=== PATIENT | male | born 1975 | race American Indian/Alaskan Native ===

== ENCOUNTER 2021-12-21 08:00 | Outpatient (CLI) | payer OTHER | END 2021-12-21 08:30 | disposition home or self-care (01) | LOC: PPH VACUNA 08:00 | PROVIDERS: ATTEND Emergency Medicine Pediatric Emergency Medicine | DX: Z23 Encounter for immunization (principal) ==

== ENCOUNTER 2022-07-30 07:30 | Emergency (ER) | payer OTHER ==
[~2022-07-30] VITALS: Ht 172.7 cm; Wt 97.1 kg
[2022-07-30] MEDS ORDERED: TENORMIN25 MG PO (07:54)
[2022-07-30] MEDS ORDERED: PEPCID AC20 MG PO (08:39)
== END 2022-07-30 09:24 | disposition home or self-care (01) ==
LOC: ER 07:30
DX: J32.9 Chronic sinusitis, unspecified (principal)

== ENCOUNTER 2022-12-12 07:22 | Outpatient (CLI) | payer OTHER ==
[~2022-12-12 07:22] MED LIST: PEPCID AC20 MG PO; TENORMIN25 MG PO
== END 2022-12-12 07:28 | disposition home or self-care (01) ==
LOC: LAB 07:22
PROVIDERS: ATTEND General Practice
DX: D64.9 Anemia, unspecified (principal); N39.0 Urinary tract infection, site not specified; I10 Essential (primary) hypertension; E78.5 Hyperlipidemia, unspecified; E11.9 Type 2 diabetes mellitus without complications; Z12.11 Encounter for screening for malignant neoplasm of colon; N40.0 Benign prostatic hyperplasia without lower urinary tract symptoms

== ENCOUNTER 2023-03-05 08:31 | Outpatient (CLI) | payer OTHER | END 2023-03-05 09:38 | disposition home or self-care (01) | LOC: LAB 08:31 | DX: U07.1 COVID-19 (principal) ==

== ENCOUNTER 2023-05-30 07:34 | Outpatient (CLI) | payer OTHER | END 2023-05-30 08:01 | disposition home or self-care (01) | LOC: LAB 07:34 | DX: U07.1 COVID-19 (principal) ==

== ENCOUNTER 2023-06-08 18:43 | Emergency (ER) | payer OTHER ==
[~2023-06-08] VITALS: Ht 167.6 cm; Wt 90.7 kg
== END 2023-06-08 22:23 | disposition home or self-care (01) ==
LOC: ER 18:43
DX: M54.89 Other dorsalgia (principal); Z88.8 Allergy status to other drugs, medicaments and biological substances

== ENCOUNTER 2023-06-28 11:57 | Outpatient (CLI) | payer OTHER | END 2023-06-28 12:07 | disposition home or self-care (01) | LOC: PPH VACUNA 11:57 | PROVIDERS: ATTEND Emergency Medicine Pediatric Emergency Medicine | DX: Z23 Encounter for immunization (principal) | CPT/HCPCS: 90686; G0008 ==

== ENCOUNTER 2023-07-02 09:57 | Emergency (ER) | payer OTHER ==
[~2023-07-02] VITALS: Ht 170.2 cm; Wt 86.2 kg
[2023-07-02] MEDS ORDERED: COZAAR25 MG PO (10:22)
== END 2023-07-02 13:22 | disposition home or self-care (01) ==
LOC: ER 09:57
DX: H93.19 Tinnitus, unspecified ear (principal); J45.909 Unspecified asthma, uncomplicated; Z87.898 Personal history of other specified conditions; Z86.79 Personal history of other diseases of the circulatory system

== ENCOUNTER → 2023-09-17 09:34 | Outpatient (CLI) | payer OTHER ==
[~2023-09-17 09:34] MED LIST changes: +COZAAR25 MG PO
[2023-09-17 10:14] LABS: HEMATOCRIT 39.8 % (39.0-48.0); HEMOGLOBIN 12.8 g/dL (13-16.00); MEAN CORPUSCULAR HEMOGLOBIN 28.6 pg (27.00-32.0); MEAN CORPUSCULAR HGB CONC 32.2 g/dl (32.0-36.0); PLATELET COUNT 168 K/uL (150-450); RED BLOOD COUNT 4.47 M/uL (4.00-6.00)
[2023-09-17 10:45] LABS: ALBUMIN 3.8 gm/dL (3.4-5.0); ALKALINE PHOSPHATASE 64 U/L (50-136); ALT/SGPT 47 U/L (12-78); ANION GAP 7 (10.0-20.0); AST/SGOT 45 U/L (15-37); BLOOD UREA NITROGEN 22 mg/dL (7-18); BUN CREA RATIO 18 (7.0-25.0); CALCIUM 8.9 mg/dL (8.5-10.1); CARBON DIOXIDE 33 mEq/L (21-32); CHLORIDE 104 mmol/L (98-107); CHOL HDL RATIO 4.4 (0-5.0); CHOLESTEROL 208 mg/dL (0-200); CREATININE SERUM 1.22 mg/dL (0.70-1.30); GFR 62.87; GLOBULINA 4.1 G/DL (2.4-3.5); GLUCOSE FASTING 103 mg/dL (65-100); HDL 47 mg/dl (40-60); LDL 124 mg/dl (0-130); OSMOLALITY SERUM 281 MOSM/KG (275-295); POTASSIUM 4.51 mEq/L (3.5-5.1); SODIUM 139 mmol/L (136-145); TOTAL PROTEIN 7.9 gm/dL (6.4-8.2); TRIGLYCERIDES 185 mg/dL (0-150); VLDL 37 (0-39)
[2023-09-17 10:59] LABS: C-REACTIVE PROTEIN < 0.29 MG/DL (0.00-0.29)
== END | disposition home or self-care (01) ==
LOC: LAB 09:34
PROVIDERS: ATTEND Internal Medicine
DX: D64.9 Anemia, unspecified (principal); R10.9 Unspecified abdominal pain; E03.9 Hypothyroidism, unspecified; E78.5 Hyperlipidemia, unspecified; R07.9 Chest pain, unspecified; E11.9 Type 2 diabetes mellitus without complications; I50.22 Chronic systolic (congestive) heart failure

== ENCOUNTER 2024-01-21 07:28 | Outpatient (CLI) | payer OTHER ==
[2024-01-21 08:08] LABS: HEMATOCRIT 40.6 % (39.0-48.0); HEMOGLOBIN 13.5 g/dL (13-16.00); MEAN CELL VOLUME 90.2 fL (80.0-100.00); MEAN CORPUSCULAR HGB CONC 33.2 g/dl (32.0-36.0); PLATELET COUNT 171 K/uL (150-450); RED CELL DISTRIBUTION WIDTH 12.8 % (11.5-14.5)
[2024-01-21 08:40] LABS: ALBUMIN 3.7 gm/dL (3.4-5.0); BILIRUBIN TOTAL 0.46 mg/dL (0.3-1.2); CALCIUM 8.9 mg/dL (8.5-10.1); CHOL HDL RATIO 5.9 (0-5.0); CREATININE SERUM 1.35 mg/dL (0.70-1.30); GFR 55.94; GLOBULINA 4.2 G/DL (2.4-3.5); POTASSIUM 4.59 mEq/L (3.5-5.1); TOTAL PROTEIN 7.9 gm/dL (6.4-8.2); TSH 1.8 uIU/mL (0.358-3.74)
== END 2024-01-21 13:31 | disposition home or self-care (01) ==
LOC: LAB 07:28
PROVIDERS: ATTEND Internal Medicine
DX: D64.9 Anemia, unspecified (principal); R10.9 Unspecified abdominal pain; E03.9 Hypothyroidism, unspecified; E78.5 Hyperlipidemia, unspecified; E11.9 Type 2 diabetes mellitus without complications; R73.09 Other abnormal glucose; I50.22 Chronic systolic (congestive) heart failure; I10 Essential (primary) hypertension

== ENCOUNTER 2024-08-17 09:00 | Outpatient (CLI) | payer OTHER | END 2024-08-17 09:10 | disposition home or self-care (01) | LOC: PPH VACUNA 09:00 | PROVIDERS: ATTEND Emergency Medicine Pediatric Emergency Medicine | DX: Z23 Encounter for immunization (principal) ==

== ENCOUNTER 2024-09-10 07:22 | Emergency (ER) | payer OTHER ==
[~2024-09-10] VITALS: Ht 172.7 cm; Wt 93.0 kg
[2024-09-10] MEDS ORDERED: ORPHENADRINE CITRATE 30 MG/ML AMPUL IM STA (09:04)
[2024-09-10] MEDS ORDERED: DEXAMETHASONE SODIUM PHOSPHATE 4 MG/ML VIAL IM STA (09:04)
[2024-09-10] MEDS ORDERED: KETOROLAC TROMETHAMINE 60 MG VIAL IM STA (09:04)
[2024-09-10] MEDS ORDERED: MEDROLPACK PO (09:52)
[2024-09-10] MEDS ORDERED: KETO10TA2 PO (09:52)
[2024-09-10] MEDS ORDERED: NORFLEX100MG PO (09:52)
== END 2024-09-10 10:21 | disposition home or self-care (01) ==
LOC: ER 07:24
DX: M54.50 Low back pain, unspecified (principal); I10 Essential (primary) hypertension; Z88.9 Allergy status to unspecified drugs, medicaments and biological substances

== ENCOUNTER 2024-09-10 10:09 | Outpatient (CLI) | payer OTHER ==
[~2024-09-10 10:09] MED LIST changes: +KETO10TA2 PO; +MEDROLPACK PO; +NORFLEX100MG PO
== END 2024-09-10 10:12 | disposition home or self-care (01) ==
LOC: NUCLEAR 10:09
PROVIDERS: ATTEND Internal Medicine
DX: I10 Essential (primary) hypertension (principal)

== ENCOUNTER 2024-09-21 11:07 | Outpatient (CLI) | payer OTHER ==
[2024-09-21 12:07] LABS: HEMATOCRIT 40.2 % (39.0-48.0); HEMOGLOBIN 12.9 g/dL (13-16.00); MEAN CELL VOLUME 90.4 fL (80.0-100.00); MEAN CORPUSCULAR HEMOGLOBIN 28.9 pg (27.00-32.0); PLATELET COUNT 194 K/uL (150-450); RED BLOOD COUNT 4.45 M/uL (4.00-6.00); RED CELL DISTRIBUTION WIDTH 12.4 % (11.5-14.5)
[2024-09-21 12:29] LABS: PARTIAL THROMBOPLASTIN TIME 28.8 SECONDS (22.0-34.0); PROTHROMBIN TIME 10.9 SECONDS (9.0-11.5)
[2024-09-21 13:10] LABS: BILIRUBIN TOTAL 0.59 mg/dL (0.3-1.2); CHOL HDL RATIO 3.8 (0-5.0); CREATININE SERUM 1.1 mg/dL (0.70-1.30); GFR 70.57; GLOBULINA 4.1 G/DL (2.4-3.5); POTASSIUM 4.35 mEq/L (3.5-5.1); TOTAL PROTEIN 8.1 gm/dL (6.4-8.2)
[2024-09-21 13:11] LABS: TSH 1.45 uIU/mL (0.358-3.74)
== END 2024-09-21 11:12 | disposition home or self-care (01) ==
LOC: LAB 11:07
PROVIDERS: ATTEND Internal Medicine
DX: D64.9 Anemia, unspecified (principal); R10.9 Unspecified abdominal pain; E03.9 Hypothyroidism, unspecified; E78.5 Hyperlipidemia, unspecified; E11.9 Type 2 diabetes mellitus without complications; I50.22 Chronic systolic (congestive) heart failure; I10 Essential (primary) hypertension

== ENCOUNTER 2025-03-10 09:47 | Outpatient (CLI) | payer OTHER ==
[2025-03-11 09:08] LABS: HEPATITIS A ANTIBODY IGG Negative (Negative); HEPATITIS B SURFACE ANTIBODY Non Reactive (.); HEPATITIS C VIRUS ANTIBODY Non Reactive (Non Reactive)
== END 2025-03-10 10:29 | disposition home or self-care (01) ==
LOC: LAB 09:47
DX: A64 Unspecified sexually transmitted disease (principal); B19.9 Unspecified viral hepatitis without hepatic coma

== ENCOUNTER → 2025-03-29 11:14 | Outpatient (CLI) | payer OTHER ==
[2025-03-29 12:04] LABS: PH,URINE 5.5 (5.0-8.0); URINE APPEARANCE Clear; URINE BILIRRUBIN Negative (NEGATIVE); URINE BLOOD Negative; URINE COLOR Yellow; URINE GLUCOSE Negative (NEGATIVE); URINE KETONE Negative (NEGATIVE); URINE LEUKOCYTE Negative; URINE NITRATE Negative; URINE PROTEIN Negative (NEGATIVE); URINE UROBILINOGEN 0.2 E.U./dl
[2025-03-29 12:08] LABS: URINE BACTERIA 4.8 uL (0.0-1933); URINE EPITHELIAL CELLS 1.4 uL (0.0-38.8); URINE RBC 3.9 uL (0.0-20.8); URINE WBC 2.5 uL (0.0-23.2)
[2025-03-29 12:15] LABS: BASO % 0.9 % (0.1-1.2); EOS # 0.06 (0.04-0.54); EOS % 1.3 % (0.7-7.0); HEMATOCRIT 42.3 % (40.1-51.0); HEMOGLOBIN 13.5 g/dL (13.7-17.5); LYMPH # 1.39 (1.18-3.74); LYMPH % 29.7 % (19.3-53.1); MEAN CORPUSCULAR HEMOGLOBIN 28.4 pg (25.6-32.2); MONO # 0.47 (0.24-0.82); NEUT # 2.71 (1.56-6.13); NEUT % 57.9 % (34.0-71.1); PLATELET COUNT 191 K/uL (163-369); RED BLOOD COUNT 4.76 M/uL (4.63-6.08); RED CELL DISTRIBUTION WIDTH 11.8 % (11.6-14.4)
[2025-03-29 12:45] LABS: INR 1.01; PARTIAL THROMBOPLASTIN TIME 27.9 SECONDS (22.0-34.0)
[2025-03-29 12:59] LABS: ALBUMIN 3.9 gm/dL (3.4-5.0); BILIRUBIN TOTAL 0.65 mg/dL (0.3-1.2); CALCIUM 8.9 mg/dL (8.5-10.1); CREATININE SERUM 1.2 mg/dL (0.70-1.30); GFR 63.83; GLOBULINA 3.7 G/DL (2.4-3.5); POTASSIUM 4.37 mEq/L (3.5-5.1); TOTAL PROTEIN 7.6 gm/dL (6.4-8.2)
== END | disposition home or self-care (01) ==
LOC: RAD 11:14
PROVIDERS: ATTEND Otolaryngology
DX: Z01.818 Encounter for other preprocedural examination (principal); R49.0 Dysphonia; J38.3 Other diseases of vocal cords

== ENCOUNTER 2025-05-28 08:30 | Emergency (ER) | payer OTHER ==
[~2025-05-28] VITALS: Ht 172.7 cm; Wt 95.3 kg
[~2025-05-28 08:30] MED LIST changes: +MELOXICAM15 MG PO
[2025-05-28] MEDS ORDERED: KETOROLAC TROMETHAMINE 30 MG VIAL IM STA (09:02)
[2025-05-28] MEDS ORDERED: ORPHENADRINE CITRATE 30 MG/ML AMPUL IM STA (09:03)
[2025-05-28] MEDS ORDERED: ORPHENADRINE CITRATE 30 MG/ML AMPUL ONE (09:05)
[2025-05-28] MEDS ORDERED: KETOROLAC TROMETHAMINE 30 MG VIAL ONE (09:05)
== END 2025-05-28 09:35 | disposition home or self-care (01) ==
LOC: ER 08:30
DX: M54.50 Low back pain, unspecified (principal)

== ENCOUNTER 2025-06-17 10:35 | Outpatient (CLI) | payer OTHER ==
[2025-06-17 11:07] LABS: COVID-19 AG POSITIVE (NEGATIVE)
== END 2025-06-17 13:51 | disposition home or self-care (01) ==
LOC: LAB 10:35
DX: J11.1 Influenza due to unidentified influenza virus with other respiratory manifestations (principal); Z20.828 Contact with and (suspected) exposure to other viral communicable diseases

== ENCOUNTER 2025-06-29 07:16 | Outpatient (CLI) | payer OTHER ==
[~2025-06-29 07:16] MED LIST changes: +NABUMETONE750 MG PO
== END 2025-06-29 07:18 | disposition home or self-care (01) ==
LOC: SONOGRAMA 07:16
DX: S43.422A Sprain of left rotator cuff capsule, initial encounter (principal)

== ENCOUNTER 2025-07-13 17:23 | Outpatient (CLI) | payer OTHER ==
[2025-07-22] MEDS ORDERED: MEDROLPACK PO (16:44)
== END 2025-07-13 17:25 | disposition home or self-care (01) ==
LOC: RAD 17:23
DX: M25.512 Pain in left shoulder (principal)

== ENCOUNTER 2025-07-20 08:21 | Emergency (ER) | payer OTHER ==
[~2025-07-20] VITALS: Ht 172.7 cm; Wt 93.4 kg
[2025-07-20] MEDS ORDERED: KETOROLAC TROMETHAMINE 60 MG VIAL IM ONE ×2 (09:00→09:15)
[2025-07-20] MEDS ORDERED: ACETAMINOPHEN 500 MG GEL..CAP PO ONE (09:00)
[2025-07-20] MEDS ORDERED: ORPHENADRINE CITRATE 30 MG/ML AMPUL IM ONE (09:00)
[2025-07-20] MEDS ORDERED: DEXAMETHASONE SODIUM PHOSPHATE 4 MG/ML VIAL IM ONE (09:00)
[2025-07-20] MEDS ORDERED: IBUPROFEN400 MG PO (09:10)
[2025-07-20] MEDS ORDERED: NORFLEX100MG PO (09:10)
[2025-07-20] MEDS ORDERED: PEPCID AC20 MG PO (09:10)
[2025-07-20] MEDS ORDERED: DEXAMETHASONE SODIUM PHOSPHATE 4 MG/ML VIAL ONE (09:15)
[2025-07-20] MEDS ORDERED: ORPHENADRINE CITRATE 30 MG/ML AMPUL ONE (09:15)
[2025-07-22] MEDS ORDERED: MEDROLPACK PO (16:44)
== END 2025-07-20 11:15 | disposition home or self-care (01) ==
LOC: ER 08:21
DX: M77.8 Other enthesopathies, not elsewhere classified (principal); Z88.8 Allergy status to other drugs, medicaments and biological substances; J45.909 Unspecified asthma, uncomplicated; I10 Essential (primary) hypertension

== ENCOUNTER 2025-08-03 08:35 | Emergency (ER) | payer OTHER ==
[~2025-08-03] VITALS: Ht 172.7 cm; Wt 93.9 kg
[~2025-08-03 08:35] MED LIST changes: +IBUPROFEN400 MG PO
[2025-08-03] MEDS ORDERED: KETOROLAC TROMETHAMINE 30 MG VIAL IM STA (09:11)
[2025-08-03] MEDS ORDERED: ORPHENADRINE CITRATE 100 MG TABLET PO STA (09:11)
[2025-08-03] MEDS ORDERED: DEXAMETHASONE SODIUM PHOSPHATE 4 MG/ML VIAL IM STA (09:11)
[2025-08-03] MEDS ORDERED: KETOROLAC TROMETHAMINE 30 MG VIAL ONE (09:25)
[2025-08-03] MEDS ORDERED: DEXAMETHASONE SODIUM PHOSPHATE 4 MG/ML VIAL ONE (09:25)
[2025-08-03] MEDS ORDERED: NAPROXEN500 MG PO (11:40)
== END 2025-08-03 13:26 | disposition home or self-care (01) ==
LOC: ER 08:35
DX: M25.512 Pain in left shoulder (principal); I49.8 Other specified cardiac arrhythmias; Z88.8 Allergy status to other drugs, medicaments and biological substances; M77.8 Other enthesopathies, not elsewhere classified

== ENCOUNTER 2025-08-13 11:00 | Outpatient (CLI) | payer OTHER ==
[~2025-08-13 11:00] MED LIST changes: +NAPROXEN500 MG PO
== END 2025-08-13 11:10 | disposition home or self-care (01) ==
LOC: PPH VACUNA 11:00
PROVIDERS: ATTEND Emergency Medicine Pediatric Emergency Medicine
DX: Z23 Encounter for immunization (principal)

== ENCOUNTER 2025-09-07 09:51 | Emergency (ER) | payer OTHER ==
[~2025-09-07] VITALS: Ht 172.7 cm; Wt 92.5 kg
[2025-09-07] MEDS ORDERED: DEXAMETHASONE SODIUM PHOSPHATE 4 MG/ML VIAL IM STA (11:21)
[2025-09-07] MEDS ORDERED: KETOROLAC TROMETHAMINE 30 MG VIAL IM STA (11:21)
[2025-09-07] MEDS ORDERED: KETOROLAC TROMETHAMINE 30 MG VIAL ONE (11:54)
[2025-09-07] MEDS ORDERED: DEXAMETHASONE SODIUM PHOSPHATE 4 MG/ML VIAL ONE (11:54)
== END 2025-09-07 12:18 | disposition home or self-care (01) ==
LOC: ER 09:51
DX: M77.8 Other enthesopathies, not elsewhere classified (principal); I10 Essential (primary) hypertension; Z88.8 Allergy status to other drugs, medicaments and biological substances